=== PATIENT | female | born 1990 | race Caucasian/White ===

== ENCOUNTER 2019-01-13 09:13 | Day surgery (SDC) | payer BC ==
[2019-01-13] MEDS ORDERED: Propofol 200 MG/20 ML SDV IV ONE (09:14)
[2019-01-13] MEDS ORDERED: fentaNYL 100 MCG/2 ML SDV IV ONE (09:14)
[2019-01-13] MEDS ORDERED: Ondansetron 4 MG/2 ML SDV IVPUSH ONE (09:14)
[2019-01-13] MEDS ORDERED: Scopolamine 1.5 MG Transdermal Patch TOP ONE (09:14)
[2019-01-13] MEDS ORDERED: HYDROmorphone 2 MG/ML SDV IV ONE (09:14)
[2019-01-13] MEDS ORDERED: Midazolam 1 MG/ML 2 ML SDV IV ONE (09:14)
[2019-01-13] MEDS ORDERED: Ketorolac 30 MG/ML SDV IVPUSH ONE (09:14)
[2019-01-13] MEDS ORDERED: Lactated Ringers 1,000 ML IV ONE (09:14)
[2019-01-13] MEDS ORDERED: Rocuronium 100 MG/10 ML MDV IV ONE (09:14)
[2019-01-13] MEDS ORDERED: Lactated Ringers 1,000 ML IV SCH (09:30)
--- NOTE | 2019-01-13 10:59 | PCM.PN ---
- General Info Date of Service: 01/13/19 - Review of Systems Systems Review Comment:: 28 y/o female here for laparoscopy with probably repair of right spigelian hernia. She is stable to proceed with no recent changes to her health status. The site of the patient's pain is confirmed with her and marked. The proposed procedure is again reviewed with her. She agrees to proceed accepting risks. - Patient Data Vitals - Most Recent: Last Vital Signs Temp 98.4 F 01/13/19 09:51 Pulse 56 L 01/13/19 09:51 Resp 20 01/13/19 09:51 BP 101/69 01/13/19 09:51 Pulse Ox 100 01/13/19 09:51 Weight - Most Recent: 130 lb Lab Results Last 24 Hours: Laboratory Results - last 24 hr 01/13/19 Range/Units 09:35 Urine HCG, Qual Negative (NEGATIVE) Med Orders - Current: Current Medications Cefazolin Sodium (Ancef) 1 gm IV ONETIME ONE Stop: 01/13/19 11:01 Last Admin: 01/13/19 10:52 Dose: 1 gm Lactated Ringer's (Ringers, Lactated) 1,000 mls @ 125 mls/hr IV ASDIRECTED [facility] Last Admin: 01/13/19 10:05 Dose: 125 mls/hr Discontinued Medications Cefazolin Sodium 1 gm/ Sodium (Chloride) 50 mls @ 200 mls/hr IV ONETIME ONE Stop: 01/13/19 11:14 - Problem List Review Problem List Initiated/Reviewed/Updated: Yes - My Orders Last 24 Hours: My Active Orders 01/12/19 14:51 Resuscitation Status Routine 01/12/19 Dinner Nothing Per Oral Diet [DIET] 01/13/19 09:30 Patient Status [ADT] Routine Patient to Empty Bladder [RC] ASDIRECTED RT Incentive Spirometry [RC] ASDIRECTED Verify Patient Consent Obtain [RC] ASDIRECTED Lactated Ringers [Ringers, Lactated] 1,000 ml IV ASDIRECTED Peripheral IV Insertion Adult [OM.PC] Routine Sequential Compression Device [OM.PC] Routine 01/13/19 11:00 ceFAZolin [Ancef] 1 gm IV ONETIME ONE - Assessment Assessment:: Right Spigelian Hernia - Plan Plan:: Laparoscopic repair of right spigelian hernia
[2019-01-13] MEDS ORDERED: ceFAZolin 1 GM Vial IV ONE (11:00)
[2019-01-13] MEDS ORDERED: ceFAZolin 1 GM in Sodium Chloride 0.9% 50 ML IV ONE (11:00)
[2019-01-13] MEDS ORDERED: Bupivacaine 0.5%/EPINEPHrine 1:200,000 50 ML MDV ONE (11:19)
[2019-01-13] MEDS ORDERED: ceFAZolin 1 GM Vial ONE (11:35)
--- NOTE | 2019-01-13 12:15 | PCM.OPNOTE ---
- General Post-Op/Procedure Note Date of Surgery/Procedure: 01/13/19 Operative Procedure(s): Laparoscopic repair of spigelian hernia Findings: Small hernia defect at inferior border of arcuate ligament on the patient's right side at about the level of the umbilicus Pre Op Diagnosis: Right Spigelian Hernia Post-Op Diagnosis: Same Anesthesia Technique: General ET Tube Primary Surgeon: Cruz Das Mothercraft Nurse: Kraig Evans Reason Mothercraft Nurse Was Necessary: Assist in mesh placement and fixation and improve efficiency Output, Urine Amount: 0 EBL in mLs: 10 Complications: None Condition: Good
[2019-01-13] MEDS ORDERED: Acetaminophen/HYDROcodone 325-5 MG Tab PO ONE (13:06)
[2019-01-13] MEDS ORDERED: hydrOXYzine HCl 50 MG/ML SDV IM ONE (13:59)
--- NOTE | 2019-01-16 10:18 | OR ---
DATE OF OPERATION: 01/13/2019 SURGEON: Cruz Das MD REFERRING PROVIDER: Rose Mary Jacobsen. PREOPERATIVE DIAGNOSIS: Right Spigelian hernia. POSTOPERATIVE DIAGNOSIS: Right Spigelian hernia. OPERATION PERFORMED: Laparoscopic repair of right Spigelian hernia. INDICATIONS FOR SURGERY: This 28-year-old female has developed localized pain and intermittent bulge-like sensation in the right abdomen. The location of the pain and characteristics are suggestive of a Spigelian hernia, and she comes for laparoscopic evaluation and hernia repair. FINDINGS: The patient's arcuate ligament is located near the level of the umbilicus, and at the right-hand border of this, there appears to be a defect with peritoneum being able to protrude up into the abdominal musculature. This was near, although just above the area where the patient had identified the location of her pain. The remainder of the arcuate ligament appeared satisfactory with less of a defect noted on the patient's left side. The remainder of the abdominal wall appeared to be intact with no other visible defects identified. PROCEDURE IN DETAIL: The patient was taken to the operating room. She was given general endotracheal anesthesia. The abdomen was sterilely prepped and draped. A small incision was made in the left upper quadrant, and utilizing the 12 mm Visiport catheter and under direct visualization, the peritoneum was entered at this location. Pneumoperitoneum to a pressure of 15 mmHg was achieved, and examination intraabdominally was carried out using the variable- angled 5 mm laparoscopic camera. Another 5 mm trocar was placed in the left lower quadrant, and an additional one was placed in the right lower quadrant. All trocar sites were infiltrated with Marcaine prior to incision. Careful examination of the anterior abdominal wall via the laparoscope was carried out and the only area of defect was the area described above. Even though this was located somewhat superior to the point of the patient's pain, it was felt that there was a hernia defect here and likely the source of the pain. A 4 1/2-inch circular [employer] mesh was selected, soaked in Ancef, and after an accessing stitch had been placed in its midpoint, it was inserted intraabdominally. The accessing stitch was brought out through a stab incision near the midline in the region of the umbilicus, and the mesh was held against the anterior abdominal wall utilizing this stitch. The mesh was centered so that it would cover the area of concern on the patient's right side and also on the same corresponding area on the patient's left. The mesh was secured to the anterior abdominal wall with absorbable tacks, using closely spaced outer row around the periphery of the mesh, securing it to the anterior abdominal wall musculature with the smooth [place] surface exposed to the intestinal side, and a more widely spaced inner row of absorbable tacks was also placed, holding the mesh in good position securely to the anterior abdominal wall with good coverage over the area of the hernia on the right and potential area of future weakness on the left. Examination showed no sign of any complication. The area was examined, the intraabdominal pressure reduced, and again no complication was identified. A port closure device was then used to place 0 Vicryl through the fascial edges in the left upper quadrant trocar site, approximating these edges well. Trocars were then all removed under direct visualization, and pneumoperitoneum was evacuated. Wounds were irrigated with saline and Betadine. Skin incisions were approximated with interrupted 4-0 Vicryl in subcuticular stitch. Steri-Strips and benzoin were applied. Antibiotic ointment and sterile dressings were placed. The patient was then awakened, extubated, and taken from the operating room in satisfactory condition. ESTIMATED BLOOD LOSS: 10 mL. COMPLICATIONS: None. PROGNOSIS: Good. /[id number] ISHA/CHAD CC: ROSE MARY JACOBSEN PA-C, [facility]
== END 2019-01-13 15:20 | disposition home or self-care (01) ==
LOC: FB.SDS 09:13
PROVIDERS: ATTEND Surgery
DX: K43.9 Ventral hernia without obstruction or gangrene (principal)
CPT/HCPCS: 49652; 81025; J0690; J3410; J3490; J7120; A9270-GY; C1713; C1781; J1170; J1885; J2250; J2405; J2704; J3010